=== PATIENT | male | born 2000 | race Caucasian/White ===

== ENCOUNTER 2019-06-20 15:38 | Emergency (ER) | payer BC, MEDICAID ==
--- NOTE | 2019-06-20 15:55 | UC ---
Cardiac HPI - HPI Summary HPI Summary: 19-year-old male presents with onset of general malaise, subjective fever, chills, productive cough for clear sputum, mild shortness of breath, and right upper chest pain with cough and deep breathing yesterday. Patient describes the chest pain as sharp. States will radiate into his right shoulder and neck. Has taken ibuprofen with some improvement in the pain. Today developed some mild nausea well. Denies headache, nasal congestion, ear pain, sore throat, palpitations, diaphoresis, weakness, dizziness, abdominal pain, vomiting, or diarrhea. - History of Current Complaint Chief Complaint: UCGeneralIllness Stated Complaint: CHEST PAIN, SOB Time Seen by Provider: 06/20/19 15:51 Hx Obtained From: Patient Pain Intensity: 8 - Allergy/Home Medications Allergies/Adverse Reactions: Allergies Allergy/AdvReac Type Severity Reaction Status Date / Time Penicillins Allergy Vomiting Verified 06/20/19 15:49 Home Medications: Home Medications Ibuprofen TAB* [Motrin TAB* 800 MG] 800 mg PO ONCE 06/20/19 [History Confirmed 06/20/19] PMH/Surg Hx/FS Hx/Imm Hx Previously Healthy: Yes - Denies significant PMH - Surgical History Surgical History: Yes Surgery Procedure, Year, and Place: [place] teeth 05/2019 - Family History Known Family History: Positive: Cardiac Disease - Social History Occupation: Student Lives: Dormitory/Roommates Alcohol Use: Occasionally Substance Use Type: None Smoking Status (MU): Current Some Day Smoker Type: Cigarettes Have You Smoked in the Last Year: Yes - marijuana - Immunization History Hx Tetanus, Diphtheria Vaccination: Yes Review of Systems All Other Systems Reviewed And Are Negative: Yes Constitutional: Positive: Chills, Fatigue. Negative: Fever Skin: Negative: Rash Eyes: Negative: Drainage, Eye Redness ENT: Positive: Sore Throat, Nasal Discharge, Sinus Congestion. Negative: Ear Ache, Sinus Pain/Tenderness Respiratory: Positive: Shortness Of Breath, Cough Cardiovascular: Positive: Chest Pain. Negative: Palpitations Gastrointestinal: Positive: Nausea. Negative: Abdominal Pain, Vomiting, Diarrhea Genitourinary: Positive: Negative Neurological: Positive: Negative Is Patient Immunocompromised?: No Physical Exam - Summary Physical Exam Summary: GENERAL APPEARANCE: Well developed, well nourished, alert and cooperative, and appears to be in no acute distress. EYES: Conjunctiva clear. No drainage. EARS: External auditory canals and tympanic membranes clear, hearing grossly intact. NOSE: Mild nasal congestion. No nasal discharge. THROAT: Pharynx normal. No tonsilar inflammation, swelling, exudate, or lesions. Uvula midline. Oral cavity normal. Teeth and gingiva in good general condition. NECK: Neck supple, non-tender without lymphadenopathy. CARDIAC: Normal S1 and S2. No S3, S4 or murmurs. Rhythm is regular. There is no peripheral edema, cyanosis or pallor. Extremities are warm and well perfused. Capillary refill is less than 2 seconds. Peripheral pulses intact. LUNGS: Clear to auscultation without rales, rhonchi, wheezing or diminished breath sounds. Chest non-tender to palpation. Non-productive cough. ABDOMEN: Positive bowel sounds. Soft, nondistended, nontender. No guarding or rebound. No masses or hepatosplenomegally. MUSKULOSKELETAL: ROM intact to all extremities. No joint erythema or tenderness. Normal muscular development. Normal gait. SKIN: Skin normal color, texture and turgor with no lesions or eruptions. Triage Information Reviewed: Yes Vital Signs: Initial Vital Signs Temp 99.9 F 06/20/19 15:46 Pulse 88 06/20/19 15:46 Resp 22 06/20/19 15:46 BP 132/90 06/20/19 15:46 Pulse Ox 98 06/20/19 15:46 Vital Signs Reviewed: Yes Diagnostics - Radiology No standard instances Radiology Interpretation Completed By: Radiologist Summary of Radiographic Findings: Order Information: CHEST PA LAT 2 VWS. INDICATION: Chest pain, shortness of breath, cough. History of tobacco use. COMPARISON: No relevant prior exams available on the [facility] for [place]. REPORT: Clear lungs and pleural spaces. Negative for pneumothorax. The heart, pulmonary vasculature, and mediastinal contours are unremarkable. Unremarkable osseous structures and soft tissue contours. IMPRESSION: #. No evidence for acute intrathoracic disease. - EKG Cardiac Rate: NL - Rate of 89 Cardiac Rhythm: Sinus: Normal Ectopy: None ST Segment: Non-Specific - EMERSON V1 and V2 likely early repolarization. - Assessment/Plan Course Of Treatment: 19-year-old male presents with onset of general malaise, subjective fever, chills, productive cough for clear sputum, mild shortness of breath, and right upper chest pain with cough and deep breathing yesterday. Patient describes the chest pain as sharp. States will radiate into his right shoulder and neck. Has taken ibuprofen with some improvement in the pain. Today developed some mild nausea well. Denies headache, nasal congestion, ear pain, sore throat, palpitations, diaphoresis, weakness, dizziness, abdominal pain, vomiting, or diarrhea. Patient was initially afebrile however at time of discharge did have a mildly elevated temperature of 100.2 F. Vital signs were otherwise stable. His exam was overall unremarkable. Twelve-lead EKG showed a normal sinus rhythm at a rate of [address] elevation in V1 and V2 likely from an early repolarization, no ectopy or T-wave abnormalities. Rapid influenza was negative. Chest x-ray showed no acute cardiopulmonary pathology. Discussed with patient that based on his history and exam symptoms are most likely from an acute bronchitis and that his chest pain seems to be pleuritic in nature. Recommending symptomatic treatment at this time including an albuterol inhaler 2 puffs every 4-6 hours as needed for shortness of breath and Tessalon Perles one capsule every 8 hours as needed for cough. He is to return here or follow up at the [facility] in 3 days if symptoms are not improving. Anticipatory guidance and warning symptoms requiring immediate evaluation in the emergency room were reviewed with the patient. Verbalizes understanding and agrees with plan of care. - Differential Diagnoses - Chest Pain Differential Diagnosis/HQI/PQRI: Acute GA, Chest Wall, GI Disease, Lower Respiratory Infection, Other: - pneumothorax, bronchitis - Clinical Impression Provider Diagnosis: Acute bronchitis, Pleuritic chest pain Discharge ED - Sign-Out/Discharge Documenting (check all that apply): Patient Departure All imaging exams completed and their final reports reviewed: Yes - Discharge Plan Condition: Stable Disposition: HOME Prescriptions: Albuterol HFA INHALER* [Ventolin HFA Inhaler*] 2 puff INH Q4H PRN #1 mdi PRN Reason: Shortness Of Breath Benzonatate CAP* [Tessalon 100 MG CAP*] 100 mg PO TID PRN #21 cap PRN Reason: Cough Patient Education Materials: Pleurisy (ED), Acute Bronchitis (ED) Referrals: No Primary Care Phys,NOPCP [Primary Care Provider] - Additional Instructions: The EKG performed in the clinic today was normal. The rapid flu test as negative. Your chest x-ray was also normal. Your history and exam are consistent with acute bronchitis which is most often caused by a viral infection. Viral infections do not respond to antibiotics and are limited to the treatment of symptoms. Viral infections typically run their course in 7-10 days. The chest pain is likely from a condition called pleurisy which is from inflammation of the lining of the lungs and chest cavity that can occur when you have a respiratory illness. Be aware that the cough with bronchitis may persist for 2-3 weeks even if other symptoms have improved. Get plenty of rest. Drink plenty of fluids. Run a cool mist humidifer in your room at night. Use albuterol inhaler 2 puffs every 4-6 hours as needed for shortness of breath. Take over the counter acetaminophen (Tylenol) or ibuprofen (Advil, Motrin) according to directions as needed for pain or fever. Take Tessalon Perles 1 cap every 8 hours as needed for cough. Return here or follow up with the [facility] in 3 days if symptoms do not improve. Seek immediate medical attention in the emergency room if you have fever greater than 100.5 F despite taking acetaminophen or ibuprofen, have worsening chest pain, difficulty breathing, or have any worsening of symptoms. - Billing Disposition and Condition Condition: STABLE Disposition: Home
[2019-06-20 16:11] LABS: Influenza A Molecular NEGATIVE (Negative); Influenza B Molecular NEGATIVE (Negative)
[2019-06-20 16:55] VITALS: BP 134/82
== END 2019-06-20 16:58 | disposition home or self-care (01) ==
LOC: UCCORT 15:38
DX: R07.81 Pleurodynia (principal); F17.210 Nicotine dependence, cigarettes, uncomplicated; Z88.0 Allergy status to penicillin
CPT/HCPCS: 71046; 93005; 99212; G0463